=== PATIENT | female | born 1995 | race Caucasian/White ===

== ENCOUNTER 2019-08-03 09:30 | Emergency (ER) | payer BC ==
--- NOTE | 2019-08-03 11:30 | RAD REPORT ---
EXAM DESCRIPTION: CT - Head Brain Wo Cont - 08/03/2019 11:16 am CLINICAL HISTORY: headache, elevated blood pressue COMPARISON: No comparisons TECHNIQUE: All CT scans are performed using dose optimization technique as appropriate and may inclu de automated exposure control or mA/KV adjustment according to patient size. FINDINGS: No intracranial hemorrhage, hydrocephalus or extra-axial fluid collection.No areas of brai n edema or evidence of midline shift. The paranasal sinuses and mastoids are clear. The calvarium is intact. IMPRESSION: No acute intracranial abnormality.
--- NOTE | 2019-08-03 11:36 | ER ---
Nurse's Notes [facility] Name: Lizzie Kaye Age: 24 yrs Sex: Female : 1995 Arrival Date: 08/03/2019 Time: 09:33 Bed 20 Private MD: Diagnosis: Headache;Epistaxis Presentation: 08/03 09:47 Presenting complaint: Nosebleed up waking and headaches x 2 weeks. Seen at work clinic, hb sent for BP 151/110 today. Transition of care: patient was not received from another setting of care. Onset of symptoms is unknown. Risk Assessment: Do you want to hurt yourself or someone else? Patient reports no desire to harm self or others. Initial Sepsis Screen: Does the patient meet any 2 criteria? No. Patient's initial sepsis screen is negative. Does the patient have a suspected source of infection? No. Patient's initial sepsis screen is negative. Care prior to arrival: None. 09:47 Method Of Arrival: Ambulatory hb 09:47 Acuity: KANDIS 3 hb Historical: - Allergies: 09:49 No Known Allergies; hb - Home Meds: 09:49 Metformin Oral [Active]; Junel 12/08 (21) oral oral [Active]; duloxetine oral oral hb [Active]; - PMHx: 09:49 Diabetes - NIDDM; hb 10:40 PCOS; sv - PSHx: 09:49 Tonsillectomy; hb - Immunization history:: Adult Immunizations up to date. - Social history:: Smoking status: Patient/guardian denies using tobacco. - Ebola Screening: : No symptoms or risks identified at this time. Screenin:10 Abuse screen: Denies threats or abuse. Denies injuries from another. Nutritional sv screening: No deficits noted. Tuberculosis screening: No symptoms or risk factors identified. Fall Risk None identified. Assessment: 10:35 General: Appears in no apparent distress. uncomfortable, obese, well groomed, well sv developed, Behavior is calm, cooperative, appropriate for age. Pain: Complains of pain in face and scalp Pain currently is 3 out of 10 on a pain scale. Pain began 2 weeks ago Is continuous. Neuro: Level of Consciousness is awake, alert, obeys commands, Oriented to person, place, time, situation, Moves all extremities. Full function Gait is steady, Speech is normal, Facial symmetry appears normal, Reports headache in entire. Neuro: Denies blurred vision dizziness, diplopia. Respiratory: Respiratory effort is even, unlabored, Respiratory pattern is regular, symmetrical. Derm: Skin is pink, warm \T\ dry. Musculoskeletal: Range of motion: intact in all extremities. 12:00 Reassessment: Pt will be discharged once the CD of pts CT is delivered. jl7 12:36 Reassessment: Pt left without discharge instructions/papers from nurse. Discharge jl7 instructions provided by ERP. Vital Signs: 09:48 BP 157 / 97; Pulse 94; Resp 16; Temp 97.6; Pulse Ox 100% on R/A; Weight 127.01 kg; hb Height 5 ft. 6 in. (167.64 cm); Pain 3/10; 10:41 BP 119 / 84; Pulse 88; Resp 16; Pulse Ox 96% ; sv 09:48 Body Mass Index 45.19 (127.01 kg, 167.64 cm) hb ED Course: 09:33 Patient arrived in ED. rg4 09:48 Triage completed. hb 09:48 Arm band placed on. hb 10:06 Ezra Hankins PA is PHCP. [facility] 10:06 Nitin Lancaster MD is Attending Physician. [facility] 10:08 Shantal Page, LAQUITA is Primary Nurse. eb 10:10 Patient has correct armband on for positive identification. Bed in low position. Call sv light in reach. Door closed. Head of bed elevated. 10:11 Awaiting ED provider evaluation. sv 10:[address] Scan. sv 11:00 Report given to Sylvester COELHO. sv 12:35 CT Head Brain wo Cont Sent. dm5 12:37 No provider procedures requiring assistance completed. Patient did not have IV access jl7 during this emergency room visit. Administered Medications: No medications were administered Outcome: 11:35 Discharge ordered by . caitlin 12:37 Discharged to home ambulatory. jl7 12:37 Condition: stable 12:37 Discharge instructions given to patient, family, Instructed on discharge instructions, follow up and referral plans. Demonstrated understanding of instructions, follow-up care. 12:38 Patient left the ED. em Signatures: Jen Mitchell RN RN dmShantal Pacheco RN RN Ezra Hankins PA PA jmm Munoz, Edgar, RESEARCHER RESEARCHER Racheal Joshua, RN RN hb Sagar, Helga rg4 Sylvester Peters RN RN jl7 [address]
--- NOTE | 2019-08-03 11:36 | EDPHYS ---
Physician Documentation [facility] Name: Lizzie Kaye Age: 24 yrs Sex: Female : 1995 Arrival Date: 08/03/2019 Time: 09:33 Bed 20 Private MD: ED Physician Nitin Lancaster HPI: 08/03 10:32 This 24 yrs old Female presents to ER via Ambulatory with complaints of High jmm Blood Pressure. 10:32 The patient describes the headache as a pressure. Onset: The symptoms/episode jmm began/occurred gradually, at 05:00. Associated signs and symptoms: Pertinent positives: epistaxis. Headache History: Denies prior headaches. This is a 24 year old female with a history of DM that presents to the ED with complaints of nose bleed this morning with a headache beginning around 0500 this morning. Patient describes the headache as a band of pressure around her head. . Historical: - Allergies: 09:49 No Known Allergies; hb - Home Meds: 09:49 Metformin Oral [Active]; Junel 12/08 (21) oral oral [Active]; duloxetine oral oral hb [Active]; - PMHx: 09:49 Diabetes - NIDDM; hb 10:40 PCOS; sv - PSHx: 09:49 Tonsillectomy; hb - Immunization history:: Adult Immunizations up to date. - Social history:: Smoking status: Patient/guardian denies using tobacco. - Ebola Screening: : No symptoms or risks identified at this time. ROS: 10:32 Constitutional: Negative for fever, chills, and weight loss, Cardiovascular: Negative jmm for chest pain, palpitations, and edema, Respiratory: Negative for shortness of breath, cough, wheezing, and pleuritic chest pain. 10:32 ENT: Positive for nose bleed. 10:32 Neuro: Positive for headache. 10:32 All other systems are negative. Exam: 10:32 Constitutional: This is a well developed, well nourished patient who is awake, alert, jmm and in no acute distress. Head/Face: atraumatic. Eyes: EOMI, no conjunctival erythema appreciated 10:32 Neck: Trachea midline, Supple Chest/axilla: Normal chest wall appearance and motion. Cardiovascular: Regular rate and rhythm. No edema appreciated Respiratory: Normal respirations, no respiratory distress appreciated Abdomen/GI: Non distended, soft Back: Normal ROM Skin: General appearance color normal MS/ Extremity: Moves all extremities, no obvious deformities appreciated, no edema noted to the lower extremities Neuro: Awake and alert, normal gait 10:32 ENT: Nose: Nasal mucosa: erythematous, bleeding, is not appreciated. Vital Signs: 09:48 BP 157 / 97; Pulse 94; Resp 16; Temp 97.6; Pulse Ox 100% on R/A; Weight 127.01 kg; hb Height 5 ft. 6 in. (167.64 cm); Pain 3/10; 10:41 BP 119 / 84; Pulse 88; Resp 16; Pulse Ox 96% ; sv 09:48 Body Mass Index 45.19 (127.01 kg, 167.64 cm) hb MDM: 10:28 Patient medically screened. [facility] 11:33 Data reviewed: vital signs, nurses notes. Counseling: I had a detailed discussion with caitlin the patient and/or guardian regarding: the historical points, exam findings, and any diagnostic results supporting the discharge/admit diagnosis, the need for outpatient follow up, to return to the emergency department if symptoms worsen or persist or if there are any questions or concerns that arise at home. ED course: Patient is alert and non toxic in the ED. No neuro deficit is appreciated. Patient is advised to follow up pcp for reevaluation of bp and otherwise given strict return precautions. patient understood and agrees with the plan of care. . 08/03 10:31 Order name: CT Head Brain wo Cont [facility] 08/03 11:31 Order name: CT; Complete Time: 11:35 EDMS Administered Medications: No medications were administered Disposition: 20:38 Co-signature as Attending Physician, Nitin Lancaster MD. rn Disposition: 08/03/19 11:35 Discharged to Home. Impression: Headache, Epistaxis. - Condition is Stable. - Discharge Instructions: Nosebleed, Adult, General Headache Without Cause. - Medication Reconciliation Form, Thank You Letter, Antibiotic Education, Prescription Opioid Use form. - Follow up: Private Physician; When: 2 - 3 days; Reason: Recheck today's complaints, Continuance of care, Re-evaluation by your physician. Signatures: Dispatcher MedHo Shantal Rizzo RN RN Ezra Lindsay PA PA jmm Munoz, Edgar, ECHO TECHNOLOGIST ECHO TECHNOLOGIST em Nitin Lancaster MD MD rn Racheal Rose RN RN Corrections: (The following items were deleted from the chart) 12:38 11:35 08/03/2019 11:35 Discharged to Home. Impression: Headache; Epistaxis. Condition em is Stable. Forms are Medication Reconciliation Form, Thank You Letter, Antibiotic Education, Prescription Opioid Use. Follow up: Private Physician; When: 2 - 3 days; Reason: Recheck today's complaints, Continuance of care, Re-evaluation by your physician. caitlin
[2019-08-03 13:16] VITALS: TEMP 97.6
[2019-08-03 13:17] VITALS: BP 119/84; O2SAT 96
== END 2019-08-03 12:38 | disposition home or self-care (01) ==
LOC: ER 09:30
DX: R51 Headache (principal); R04.0 Epistaxis; E11.9 Type 2 diabetes mellitus without complications
CPT/HCPCS: 70450; 99283